=== PATIENT | female | born 1985 | race Hispanic/Latino ===

== ENCOUNTER 2020-09-06 08:37 | Outpatient (CLI) | payer OTHER ==
[2020-09-06 17:14] LABS: SARS-CoV-2 MS2 Positive; SARS-CoV-2 N Gene Negative; SARS-CoV-2 S Gene Negative; SARS-CoV-2 by NAA Not Detected (NotDetected); SARS-CoV-2 orf1ab Negative
== END 2020-09-06 08:38 | disposition home or self-care (01) ==
LOC: LABBT 08:37
PROVIDERS: ATTEND Advanced Practice Midwife
DX: Z01.812 Encounter for preprocedural laboratory examination (principal); Z20.828 Contact with and (suspected) exposure to other viral communicable diseases
CPT/HCPCS: 87635; U0003

== ENCOUNTER 2020-09-11 08:12 | Outpatient (CLI) | payer OTHER ==
[2020-09-11 19:31] LABS: SARS-CoV-2 MS2 Positive; SARS-CoV-2 N Gene Negative; SARS-CoV-2 S Gene Negative; SARS-CoV-2 by NAA Not Detected (NotDetected); SARS-CoV-2 orf1ab Negative
== END 2020-09-11 08:13 | disposition home or self-care (01) ==
LOC: LABBT 08:12
PROVIDERS: ATTEND Advanced Practice Midwife
DX: Z01.812 Encounter for preprocedural laboratory examination (principal); Z20.828 Contact with and (suspected) exposure to other viral communicable diseases
CPT/HCPCS: 87635; U0003

== ENCOUNTER 2020-09-11 20:19 | Inpatient (IN) | payer OTHER ==
[2020-09-11] MEDS ORDERED: Promethazine HCl 25 MG/ML VIAL IM PRN (21:42)
[2020-09-11] MEDS ORDERED: HYDROcodone/Acetaminophen 5/325 mg Tablet PO PRN (21:42)
[2020-09-11] MEDS ORDERED: NS / Oxytocin 40 units/1000ml 1,000 ML IV PRN (21:42)
[2020-09-11] MEDS ORDERED: Ibuprofen 800 MG TAB PO PRN (21:42)
[2020-09-11] MEDS ORDERED: hydrALAZINE 20 MG/ML VIAL SLOW IVP PRN (21:42)
[2020-09-11] MEDS ORDERED: Butorphanol Tartrate 1 MG/ML VIAL SLOW IVP PRN (21:42)
[2020-09-11] MEDS ORDERED: Lidocaine 1% (PF) 30 ML VIAL SC PRN (21:42)
[2020-09-11] MEDS ORDERED: Ondansetron PF 4 MG/2 ML Vial IVP PRN (21:42)
[2020-09-11] MEDS ORDERED: Lactated Ringer's 1,000 ML IV SCH (21:45)
[2020-09-11 23:40] VITALS: BMI 28.3
[2020-09-12 02:20] LABS: Hemoglobin 13.9 g/dL (12.0-16.0); Mean Corpuscular HGB CONC 34.9 g/dL (32.0-36.0); Mean Corpuscular Hemoglobin 34.4 pg (27.0-31.0); Mean Corpuscular Volume 98.5 fL (78.0-98.0); RBC Distribution Width 12.9 % (11.5-14.5); Red Blood Cell (RBC) Count 4.04 mill/uL (4.20-5.40); White Blood Cell (WBC) Count 27.2 thou/uL (4.8-10.8)
[2020-09-12 02:27] LABS: Mean Platelet Volume 10.3 fL (7.4-10.4); Platelet Count 86 thou/uL (130-400)
[2020-09-12 04:47] LABS: Syphilis Antibody Nonreactive (Nonreactive); Syphilis Antibody Index 0.06 S/CO (<1.00 Non-Reactive)
[2020-09-12 05:28] LABS: HBSAg Index 0.48 S/CO (0-0.99); Hep B Surf Ag NonReactive S/CO (NonReactive)
--- NOTE | 2020-09-12 07:03 | PDOC.LDHP ---
Labor and Delivery H&P Chief complaint: contractions HPI: Patient contacted CNM at 1949 on 09/11/20 reporting strong uterine contractions ever 3-4 minutes. She was heading towards the hospital at the time. Current gestational age (weeks): 41 (4) Due date: 08/31/20 Dating criteria: last menstrual period (verified with 8w5d ultrasound) Grav: 1 Para: 0 Current complications: other ( contractions at 28 weeks, admitting to hospital for mag, steroids, antibiotics, and nifedipine protocol.) Abnormal US findings: No Past Medical History: allergies Current medications: pre- vitamins Previous surgical history: other (extraction of wisdom teeth) Allergies/Adverse Reactions: Allergies Allergy/AdvReac Type Severity Reaction Status Date / Time No Known Allergies Allergy Verified 09/11/20 23:24 Social history: none - Physical Exam Vital signs reviewed and normal: yes General: breathing through contractions Lungs: nonlabored breathing Abdomen: gravid FHT: category 1 - Vaginal Exam cm dilated: 9 Effacement: 100% Station: 1+ - OB Labs Blood type: O RH: positive Antibody Screen: negative HIV: negative RPR: negative HEPSAg: negative 1 hour GCT: negative GBS: negative Urine drug screen: negative Rubella: immune - Assessment L&D Assessment: term patient in labor - Plan Plan: admit to L&D, informed consent obtained, anesthesia consult for pain management
--- NOTE | 2020-09-12 09:43 | PDOC.BPN ---
- Brief Progress Note Encounter Date: 09/12/20 Encounter Time: 09:41 Patient is complete and pushing for 1.5 hrs. No regional anesthesia currently. PLT on admission were 86. I consulted with Andrea Chirinos due to thrombocytopenia. We discussed possibility of epidural/ spinal if needed. Labs ordered CMP and Pt/PTT stat in preparation in case operative delivery in indicated.
[2020-09-12 10:37] LABS: INR-International Normal Ratio 0.9; PTT 33.7 sec (22.9-36.1); Prothrombin Time 12.6 sec (12.0-14.7)
[2020-09-12 10:51] LABS: ALT (SGPT) 80 U/L (8-55); AST (SGOT) 74 U/L (5-34); Albumin 3.6 g/dL (3.5-5.0); Alkaline Phosphatase 275 U/L (40-110); Anion Gap 24 mmol/L (10-20); BUN (Urea Nitrogen) 13 mg/dL (7.0-18.7); Bilirubin, Total 0.8 mg/dL (0.2-1.2); Calc. Creatinine Clearance 93 mL/min (70-130); Carbon Dioxide 14 mmol/L (22-29); Chloride 96 mmol/L (98-107); Globulin 2.7 g/dL (2.4-3.5); Glucose 136 mg/dL (70-105); Potassium 3.9 mmol/L (3.5-5.1); Protein, Total 6.3 g/dL (6.0-8.3); Sodium 130 mmol/L (136-145)
[2020-09-12] MEDS ORDERED: Famotidine/PF 20 mg/2ml Vial SLOW IVP PRN (11:04)
[2020-09-12] MEDS ORDERED: Bicitra 30 ML UDCUP PO PRN (11:04)
[2020-09-12] MEDS ORDERED: Azithromycin 500 MG VIAL ONE (11:05)
[2020-09-12] MEDS ORDERED: Oxytocin 10 UNITS/ML VIAL ONE (11:11)
[2020-09-12] MEDS ORDERED: Morphine PF 10 MG/10 ML VIAL ONE (11:12)
--- NOTE | 2020-09-12 11:14 | PDOC.BPN ---
- Brief Progress Note Encounter Date: 09/12/20 Encounter Time: 11:09 Arrest of decent, failed second stage. Prolonged second stage. NML pt/ptt. Thrombocytopenia. Discussed options with patients. Consents for Primary . Risks, benefits, and alternative covered in detail. Anesthesia consult completed. Ancef 2g IV x 1 and Azithromycin 500mg IVPB x 1. OB hospitalist notified and spoken with patient.
[2020-09-12] MEDS ORDERED: Azithromycin 500 MG in Sodium Chloride 0.9% 250 ML 250 ML IVPB SCH (11:15)
[2020-09-12] MEDS ORDERED: CEFAZOLIN 2 GM in Premix Bag 1 BAG IVPB SCH (11:15)
[2020-09-12 12:16] LABS: Actual Bicarbonate (HCO3a) 15.3 mEq/L (22-28); Base Excess (BEa) -19.5 mEq/L (-2.0 to +3.0)
[2020-09-12 12:18] LABS: Actual Bicarbonate (HCO3v) 15 mEq/L (22-28); Base Excess -18.6 mEq/L (-2.0 to +3.0)
[2020-09-12 12:19] LABS: pH (Cord, venous) 6.96 (7.32-7.43)
[2020-09-12] MEDS ORDERED: Ondansetron HCl/PF 4 MG/2 ML Vial IVP PRN (12:37)
[2020-09-12] MEDS ORDERED: Meperidine HCl/PF 25 MG/ML VIAL SLOW IVP PRN (12:37)
[2020-09-12] MEDS ORDERED: L&D-Morphine 4 MG/ML VIAL SLOW IVP PRN (12:37)
[2020-09-12] MEDS ORDERED: HYDROmorphone 2 MG/ML VIAL SLOW IVP PRN (12:37)
[2020-09-12] MEDS ORDERED: Ketorolac Tromethamine 30 MG/ML VIAL IVP SCH (12:45)
[2020-09-12 13:14] LABS: Hemoglobin 12.9 g/dL (12.0-16.0); Mean Corpuscular HGB CONC 34.9 g/dL (32.0-36.0); Mean Corpuscular Hemoglobin 34.1 pg (27.0-31.0); Mean Corpuscular Volume 97.8 fL (78.0-98.0); Mean Platelet Volume 9.3 fL (7.4-10.4); Platelet Count 126 thou/uL (130-400); RBC Distribution Width 12.8 % (11.5-14.5); Red Blood Cell (RBC) Count 3.78 mill/uL (4.20-5.40); White Blood Cell (WBC) Count 34.8 thou/uL (4.8-10.8)
[2020-09-12 13:31] LABS: Band 22 % (5-11); Lymphocytes 5 % (21-51); MDiff Complete? YES; Metamyelocyte 2 % (0-0); Monocytes 5 % (0-10); Neutrophil 66 % (42-75); Platelet Morphology Comment Appears Decreased; RBC Morphology Normal
[2020-09-12 13:34] LABS: ALT (SGPT) 68 U/L (8-55); AST (SGOT) 71 U/L (5-34); Alkaline Phosphatase 224 U/L (40-110); Anion Gap 17 mmol/L (10-20); BUN (Urea Nitrogen) 14 mg/dL (7.0-18.7); Bilirubin, Total 0.5 mg/dL (0.2-1.2); Calc. Creatinine Clearance 85 mL/min (70-130); Calcium 7.4 mg/dL (7.8-10.44); Carbon Dioxide 20 mmol/L (22-29); Chloride 96 mmol/L (98-107); Globulin 2.4 g/dL (2.4-3.5); Glucose 128 mg/dL (70-105); Potassium 3.7 mmol/L (3.5-5.1); Protein, Total 5.4 g/dL (6.0-8.3); Sodium 129 mmol/L (136-145)
--- NOTE | 2020-09-12 13:40 | RAD ---
PORTABLE CHEST: History Epigastric pain postop. FINDINGS: Heart size and mediastinum are within normal limits for portable technique. Lungs are clear of any i nfiltrates. No pleural effusions. IMPRESSION: No active intrathoracic disease. POS: NORBERT
[2020-09-12 13:46] LABS: Creatinine, Urine 199.77 mg/dL (47-110)
[2020-09-12] MEDS ORDERED: Misoprostol 200 MCG TAB PR PRN (13:48)
[2020-09-12] MEDS ORDERED: Methylergonovine 0.2 MG/ML VIAL IM PRN (13:48)
[2020-09-12] MEDS ORDERED: Bisacodyl 10 MG SUPP PR PRN (13:48)
[2020-09-12] MEDS ORDERED: HYDROcodone/Acetaminophen 5/325 mg Tablet PO PRN (13:48)
[2020-09-12] MEDS ORDERED: Acetaminophen 325 MG TAB PO PRN (13:48)
[2020-09-12] MEDS ORDERED: hydrALAZINE 20 MG/ML VIAL SLOW IVP PRN (13:48)
[2020-09-12] MEDS ORDERED: diphenhydrAMINE 25 MG CAP PO PRN (13:48)
[2020-09-12] MEDS ORDERED: Lanolin Ointment 7 GM TUBE TOP PRN (13:48)
[2020-09-12] MEDS ORDERED: NS / Oxytocin 40 units/1000ml 1,000 ML IV SCH (13:48)
[2020-09-12] MEDS ORDERED: Sodium Chloride 0.9% 10 ML ONE (16:08)
[2020-09-12] MEDS ORDERED: Naloxone HCl 0.4 mg/ml Vial IVP PRN ×2 (16:41)
[2020-09-12] MEDS ORDERED: Promethazine HCl 25 MG/ML VIAL IM PRN (16:41)
[2020-09-12] MEDS ORDERED: Ondansetron PF 4 MG/2 ML Vial IVP PRN (16:41)
[2020-09-12] MEDS ORDERED: Promethazine HCl 25 MG SUPP PR PRN (16:41)
[2020-09-12] MEDS ORDERED: diphenhydrAMINE 50 MG/ML VIAL IVP PRN (16:41)
[2020-09-12] MEDS ORDERED: Naloxone HCl 0.4 mg/ml Vial IV PRN (16:41)
[2020-09-12] MEDS ORDERED: Ketorolac Tromethamine 30 MG/ML VIAL IVP PRN (16:41)
[2020-09-12] MEDS ORDERED: Communication Order-Pharmacy FS SCH (16:45)
[2020-09-12] MEDS: Ibuprofen 800 MG TAB PO SCH ×2 (17:36→23:04)
[2020-09-12] MEDS: Lactated Ringer's 1,000 ML IV SCH ×2 (17:36→23:04)
[2020-09-12] MEDS: Simethicone Chewable 80 MG TAB PO PRN (21:02)
[2020-09-12] MEDS: Docusate Calcium (SURFAK) 240 MG CAP PO SCH (21:02)
[2020-09-13] MEDS: Simethicone Chewable 80 MG TAB PO PRN ×4 (01:10→19:47)
[2020-09-13] MEDS: Lactated Ringer's 1,000 ML IV SCH ×3 (05:41→23:05)
[2020-09-13] MEDS: Ibuprofen 800 MG TAB PO SCH ×3 (05:43→21:20)
[2020-09-13] MEDS: HYDROcodone/Acetaminophen 5/325 mg Tablet PO PRN ×3 (05:53→18:49)
[2020-09-13 06:49] LABS: Hemoglobin 11.1 g/dL (12.0-16.0); Mean Corpuscular Hemoglobin 35.3 pg (27.0-31.0); Mean Corpuscular Volume 97.9 fL (78.0-98.0); Mean Platelet Volume 8.6 fL (7.4-10.4); Platelet Count 130 thou/uL (130-400); RBC Distribution Width 12.8 % (11.5-14.5); Red Blood Cell (RBC) Count 3.14 mill/uL (4.20-5.40); White Blood Cell (WBC) Count 28.3 thou/uL (4.8-10.8)
--- NOTE | 2020-09-13 08:16 | OP ---
DATE OF PROCEDURE: 09/12/2020 TIME OF SERVICE: 12:10. PREOPERATIVE DIAGNOSIS: Post-term , significant asynclitism with prolonged second stage of labor, is a patient of Nelson Green Nurse Caseworker. POSTOPERATIVE DIAGNOSES: 1. Post-term , significant asynclitism with prolonged second stage of labor, is a patient of Nelson Greenife. 2. Persistent occiput posterior presentation. PROCEDURE: Primary low-transverse section. SURGEON: Godfrey Harley MD, for [facility] [employer] STRIP FEEDER: nelson Green nurse bellhop for [facility]. ANESTHESIA: Subarachnoid block. MEDICATIONS: 2 g Ancef, 500 azithromycin pre-incision. DVT PROPHYLAXIS: SCDs. DRAINS: Turner to gravity. OPERATIVE FINDINGS: 1. Significant right asynclitism and persistent occiput posterior presentation at complete complete +1 station. 2. Female , Apgars and weight pending. ABG pending. 3. Normal-appearing uterus, tubes, and ovaries. 4. Hemostasis, clear urine. COUNTS: Correct at the end of the procedure. DISPOSITION: Recovery room in good condition. DESCRIPTION OF OPERATIVE PROCEDURE: The patient was taken to the operating room for subarachnoid block after 3 hours of pushing. She received a subarachnoid block and Turner catheter was placed. The infant's head was palpated to be at +1 station and was disengaged manually by the surgeon prior to her prep. An abdominal prep was carried out, and the patient was prepped and draped in the usual manner. A Pfannenstiel incision was carried through the skin down to the fascia, which was incised sharply, extended superiorly and laterally with curved Garrett scissors. Rectus dissected off sharply superiorly and inferiorly, divided midline, peritoneum entered bluntly to avoid trauma to the underlying viscera. Wilfredo O retractor was placed inside, significantly dilated and edematous lower uterine segment and bladder was visualized, and the incision was made on the uterus just above the level of the vesicouterine peritoneal fold. It was extended superiorly and laterally with finger fractionization. Infant's nose and lips were visualized through the hysterotomy, indicating persistent occiput posterior presentation. The gun sealing machine operator's hand was introduced into the pelvis taking the slightly disengaged head and disengaging it further, bringing it through the hysterotomy and then delivering the through the hysterotomy and onto the abdomen. Meconium-stained fluid was encountered at hysterotomy. The cord was clamped and cut immediately secondary to slightly depressed. without spontaneous cry. It was handed off to the team in attendance. Cord gas was obtained, blood sample was obtained, and the placenta was removed manually and sent for pathologic analysis. The uterus was curetted out with a dry laparotomy sponge. The hysterotomy was identified, noted to be without extension. It was grasped at its corners using ring forceps and then closed using a 0 Monocryl suture in a two-layer closure technique running locking. After closure, irrigation was carried out with the gutters bilaterally, and hysterotomy was reinspected and noted to be dry and intact. At this point in time, the Wilfredo O retractor was removed. The rectus was inspected and noted to be dry. The fascia was reapproximated using 1-0 PDS suture in a running continuous manner. The subcutaneous tissue was irrigated, rendered hemostatic with Bovie cautery, reapproximated using 2-0 plain gut, and then the skin reapproximated using 4-0 Monocryl and Dermabond. The patient was entered into routine post section care. Job ID: [id number]
[2020-09-13] MEDS: Prenatal Vitamin 1 TAB PO SCH (08:31)
[2020-09-13] MEDS: Docusate Calcium (SURFAK) 240 MG CAP PO SCH ×2 (08:31→19:47)
[2020-09-13] MEDS ORDERED: Adacel (T-DAP) 0.5 ML SYRINGE IM ONE (13:48)
[2020-09-14] MEDS: HYDROcodone/Acetaminophen 5/325 mg Tablet PO PRN (01:05)
[2020-09-14] MEDS: Simethicone Chewable 80 MG TAB PO PRN ×3 (01:06→10:52)
[2020-09-14] MEDS: Ibuprofen 800 MG TAB PO SCH ×2 (06:08→13:38)
--- NOTE | 2020-09-14 06:18 | PDOC.PP ---
Post Progress Note Post Day #: 1 Subjective: Patient is feeling much better than when she was in recovery. The epigastric pain she is now reporting at just sore instead of acutely painful. She is pumping because her is very sleepy and not well. Her pain is controlled. She has been up to urinate but has not passed gas PO intake tolerated: yes Flatus: no Ambulation: yes Vital Signs (12 hours) Temp Pulse Resp BP Pulse Ox 09/14/20 00:45 98.6 F 98 18 107/57 L 09/13/20 19:45 99.0 F 104 H 20 126/75 100 Weight Weight 155 lb - Physical Examination General: NAD Cardiovascular: no m/r/g, RRR Respiratory: clear to auscultation bilaterally, non-labored breathing Abdominal: + bowel sounds, appropriately TTP Extremities: negative homans (B) Skin: CS incision dry & intact Neurological: no gross focal deficits Psychiatric: A&Ox3, normal affect Result Diagrams: 09/13/20 06:31 09/12/20 12:58 Additional Labs: Post Labs Hep Bs Antigen NonReactive S/CO (NonReactive) 09/12/20 01:57 Blood Type O POSITIVE 09/12/20 02:20 (1) Status post primary low transverse section Code(s): Z98.891 - HISTORY OF UTERINE SCAR FROM PREVIOUS SURGERY Status: Acute - Assessment/Plan A: G1 now P1 s/p LTCS for prolonged second stage with NML POD 1 exam. Afebrile. P: continue to observe patient. WBCs are dropping and PLT are rising post operatively. routine care Evaluate for discharge home POD2 or POD3
[2020-09-14] MEDS: Lactated Ringer's 1,000 ML IV SCH (06:32)
--- NOTE | 2020-09-14 08:08 | PRG ---
DATE OF SERVICE: 09/14/2020 PRIMARY [facility] TRAVEL PT: Dr. Popeye Abad. SUBJECTIVE: The patient is postop day 2 status post primary for arrest of descent after pushing for 3 hours. The patient today reports that she is tolerating p.o., having good pain control, and is voiding on her own. She reports that the baby's bilirubin was elevated yesterday and we will be rechecking it today. OBJECTIVE: CURRENT VITAL SIGNS: Blood pressure is 107/57, temperature 98.6, pulse of 98, and respiratory rate 18. GENERAL: She appears to be in no acute distress. She is alert, oriented, cooperative, pleasant to interact with. ABDOMEN: Fundus is firm. Nontender. Incision is clean, dry, and intact with suture. LABORATORY DATA: Post delivery hemoglobin 11.1, hematocrit 30.8, and platelets of 130,000. ASSESSMENT AND PLAN: The patient is postoperative day 2, status post primary section for arrest of labor. She is having a routine postoperative recovery. Plan at this time is to reassess this afternoon and see how she is feeling about discharge home today or tomorrow morning. Job ID: [id number]
[2020-09-14] MEDS: Docusate Calcium (SURFAK) 240 MG CAP PO SCH (08:32)
[2020-09-14] MEDS: Prenatal Vitamin 1 TAB PO SCH (08:32)
[2020-09-14 10:42] VITALS: BP 144/76; TEMP 97.5
--- NOTE | 2020-09-17 18:01 | PQF ---
Dear Magalie De Leon Date 09/17/2020 Please exercise your independent, professional judgment in responding to the clarification form. Clinical indicators are provided on the bottom of this form for your review Can you please further clarify the diagnosis of the patient? ___ Final Diagnosis on the Pathology report: Acute chorioamnionitis Clarification of Pathology report: Please check appropriate box(es): [ ] Agree w the pathology finding of: Acute chorioamnionitis [ ] Other explanation of pathology findings (please specify) [ ] Other diagnosis please specify [ ] Unable to determine Physician Signature: Date/Time: For continuity of documentation, please document condition throughout progress notes and discharge summary. Thank You. To be completed by CDI/Coding staff for physician review: Present Clinical Indicators - Signs / Symptoms / Labs Results and Location in Medical Record [ x ] membranes: Acute chorioamnionitis Pathology report pg.1 [ x ] Post term , significant asynclitism with prolonged labor second stage of labor OP report pg.1 [ x ] Meconium stained fluid was encountered OP report pg.2 [ x ] WBC: 27.2H, 34.8H, 28.3H Laboratory Present Risk Factors Results and Location in Medical Record [ x ] 35 years old H and P pg.1 [ x ] 41 weeks AOG H and P pg.1 [ x ] thrombocytopenia PN 12/10 pg.1 Present Treatments Results and Location in Medical Record [ x ] IV Fluids MAR [ x ] Cefazolin 2gm IV MAR [ x ] Azithromycin 500mg IV MAR CDS/C.O.D. Clerk Signature: Connercherie Ruddyjayson Vacabhavinolamide Phone #: ext [phone] Date 09/17/2020 This is a permanent part of the Medical Record [facility]
== END 2020-09-14 14:15 | disposition home or self-care (01) | DRG 787 ==
LOC: L&D/OP 20:19 → L&D 21:42 → 3SW 09-12 15:33
PROVIDERS: ADMIT Obstetrics & Gynecology; ATTEND Obstetrics & Gynecology
PROC: 10D00Z1 Extraction of Products of Conception, Low, Open Approach (ICD-10-PCS; principal; 2020-09-12)
DX: O48.0 Post-term pregnancy (principal); O99.12 Other diseases of the blood and blood-forming organs and certain disorders involving the immune mechanism complicating childbirth; Z20.828 Contact with and (suspected) exposure to other viral communicable diseases; D69.6 Thrombocytopenia, unspecified; O77.0 Labor and delivery complicated by meconium in amniotic fluid; Z3A.41 41 weeks gestation of pregnancy; O63.1 Prolonged second stage (of labor); Z37.0 Single live birth; O64.0XX0 Obstructed labor due to incomplete rotation of fetal head, not applicable or unspecified
CPT/HCPCS: 36415; 51702; 71045; 80053; 82570; 82805; 84156; 85027; 85610; 85730; 86780; 86850; 86900; 86901; 87340; 87635; 88307; J0456; J0595; J0690; J2270; J2405; U0003

== ENCOUNTER 2022-12-29 09:39 | Outpatient (CLI) | payer BC ==
[2022-12-29 10:03] LABS: BHCG - Serum Negative (NEGATIVE); Pregs Control Background? CLEAR/WHITE (CLR/WHITE); Pregs Control Bar Appear? YES (CONTROL BAR)
== END 2022-12-29 09:40 | disposition home or self-care (01) ==
LOC: RAD 09:39
PROVIDERS: ATTEND Advanced Practice Midwife
DX: Z31.69 Encounter for other general counseling and advice on procreation (principal)
CPT/HCPCS: 58340; 74740; 84703